=== PATIENT | female | born 1930 | race Caucasian/White ===

== ENCOUNTER → 2017-03-08 | Outpatient (CLI) | payer OTHER, MEDICARE | LOC: FCPNEURO 21:00 | PROVIDERS: ATTEND Internal Medicine Sleep Medicine | DX: G47.33 Obstructive sleep apnea (adult) (pediatric) (principal); G47.36 Sleep related hypoventilation in conditions classified elsewhere ==

== ENCOUNTER → 2017-07-14 | Outpatient (CLI) | payer OTHER, MEDICARE | LOC: BHFA 14:45 | PROVIDERS: ATTEND Internal Medicine Cardiovascular Disease | DX: I35.9 Nonrheumatic aortic valve disorder, unspecified (principal) ==

== ENCOUNTER → 2017-07-20 | Outpatient (CLI) | payer OTHER, MEDICARE | LOC: BHFA 09:00 | PROVIDERS: ATTEND Internal Medicine Cardiovascular Disease | DX: R07.9 Chest pain, unspecified (principal) | CPT/HCPCS: 78452; 93017; A9500; J2785 ==

== ENCOUNTER 2017-08-17 07:34 | Observation (INO) | payer OTHER, MEDICARE ==
[2017-08-17] MEDS ORDERED: ASPIRIN EC 325 MG TAB PO ONE ×2 (07:39→08:07)
[2017-08-17] MEDS ORDERED: NS 1,000 ML IV ONE (07:39)
[2017-08-17] MEDS ORDERED: diphenhydrAMINE 25 MG CAP PO ONE ×2 (07:39→08:06)
[2017-08-17] MEDS ORDERED: FAMOTIDINE 20 MG TAB PO ONE (07:39)
[2017-08-17] MEDS ORDERED: DIAZEPAM 5 MG TAB PO ONE (07:39)
[2017-08-17] MEDS ORDERED: DIAZEPAM 5 MG TAB ONE (08:07)
[2017-08-17] MEDS ORDERED: FAMOTIDINE 20 MG TAB ONE (08:07)
[2017-08-17 08:18] LABS: PLATELET COUNT 228 10^3/uL (150-400)
--- NOTE | 2017-08-17 08:18 | CPEKG ---
Heart Rate: 68 RR Interval: 882 P-R Interval: 156 QRSD Interval: 80 QT Interval: 380 QTC Interval: 405 P [place]: 57 QRS [place]: -2 EKG Severity - ABNORMAL ECG - EKG Impression: SINUS RHYTHM EKG Impression: NONSPECIFIC T ABNORMALITIES, ANT-LAT LEADS Electronically Signed By: Nikhil Harris 18-Aug-2017 11:09:53
[2017-08-17 08:32] LABS: INR 1.01 (0.83-1.16); PROTIME(PATIENT) 13.5 SEC (12.0-15.0)
[2017-08-17] MEDS ORDERED: LIDOCAINE 1% 300 MG/30 ML SDV ONE (08:45)
[2017-08-17] MEDS ORDERED: fentaNYL 100 MCG/2 ML INJ ONE (08:45)
[2017-08-17] MEDS ORDERED: MIDAZOLAM 2 MG/2 ML VIAL ONE ×3 (08:46→10:33)
[2017-08-17] MEDS ORDERED: VERAPAMIL 5 MG/2 ML VIAL ONE (08:46)
[2017-08-17] MEDS ORDERED: IOPAMIDOL (ISOVUE-370) 150 ML BTL IV ONE ×2 (08:46→10:37)
[2017-08-17] MEDS ORDERED: HEPARIN 10,000 UNIT/10 ML MDV (1,000 UNIT/ML) ONE (08:47)
--- NOTE | 2017-08-17 09:31 | PDPROPOC ---
Sedation Plan of Care Sedation Plan of Care: vital signs stable, mental status noted, patient educated of risks, benefits, alternatives, patient can tolerate sedation ASA Classification: ASA 2 Planned drugs: fentanyl, midazolam Mallampati Score: Class 2 Mallampati Reference Image: Patient passed 3-3-2 rule?: Yes
--- NOTE | 2017-08-17 09:31 | PDHPUP ---
History & Physical Update H&P update statement: This history and physical update is based on an assessment of the patient which was completed after admission or registration (within 24 hours), but prior to the surgery/procedure. H&P update: H&P reviewed & patient examined, no change in patient's condition since H&P completed
[2017-08-17] MEDS ORDERED: BIVALIRUDIN 250 MG/5 ML VIAL IV ONE ×3 (10:13→10:49)
[2017-08-17] MEDS ORDERED: NITROGLYCERIN/D5W 50 MG/250 ML BOTTLE IV ONE (10:19)
[2017-08-17] MEDS ORDERED: NITROGLYCERIN 1,500 MCG/15 ML VIAL MISC ONE (10:21)
[2017-08-17] MEDS ORDERED: CLOPIDOGREL BISULFATE 75 MG TAB ONE (10:26)
--- NOTE | 2017-08-17 10:40 | PDDXCAT ---
Diagnostic Cath Note - . Date: 08/17/17 Skin Diver: Dianne Indication: CCC Class III and IV angina on medical treatment - Procedure Access: right groin Procedure: left heart catheterization, coronary angiography, left ventriculogram - Materials Left Heart Cath size: 6F Left Heart Cath materials: standard multipack (JL4, JR4, pigtail) - Findings-Left Heart Catheterization LM: Normal. Bifurcates into the LAD and Lcx LAD: 90% proximal stenosis. GERRI III flow in the rest of the vessel LCX: Diffuse mild disease. OM1 with 40% ostial disease RCA: Dominant. Mild diffuse luminal irregularities EDP: 21 LVEF: 55%. Normal wall motion - Findings-Right Heart Catheterization AO: 157/51 Complications: none Estimated blood loss: <50ml Assessment: Severe LAD prox stenosis. Interventional consult with Dr. Morales Patient Problems: Problems Problem Status Onset Lumbar stenosis Acute Abdominal pain Acute Severe sepsis Acute
--- NOTE | 2017-08-17 11:25 | CPEKG ---
Heart Rate: 63 RR Interval: 952 P-R Interval: 172 QRSD Interval: 82 QT Interval: 420 QTC Interval: 430 P [place]: 55 QRS [place]: -10 T Wave [place]: 65 EKG Severity - ABNORMAL ECG - EKG Impression: SINUS RHYTHM EKG Impression: CONSIDER LEFT VENTRICULAR HYPERTROPHY Electronically Signed By: Nikhil Harris 18-Aug-2017 11:10:10
--- NOTE | 2017-08-17 11:32 | CPIP ---
[f rep st] INVASIVE CARDIAC PROCEDURE DATE OF PROCEDURE: 08/17/2017 INDICATIONS FOR PROCEDURE: Unstable angina, positive stress test. PROCEDURE: 1. Left coronary artery selective angiography. 2. Percutaneous coronary intervention of proximal LAD utilizing Synergy 2.5 x 28 mm drug-eluting genet nt. 3. Right groin closure with 6-Irish Angio-Seal. BRIEF HISTORY: This is an 86-year-old female with history of unstable anginal symptoms. The patient underwent a stress test as an outpatient which was positive for apical ischemia. The patient underw ent a diagnostic cardiac catheterization by Dr. Harper Daen. Please refer to Dr. Dean's note for full delineation of underlying coronary anatomy. Briefly, the patient was found to have high-grade 90% p roximal LAD disease. She did have moderate disease in her marginal 1 artery as well. However, this vessel was only approximately a 0.75 x 1 mm vessel in width compared to the LAD which was at least a 2.5 vessel. Giving these findings, the patient consented for percutaneous intervention. DESCRIPTION OF PROCEDURE: After informed consent and utilizing the same sheath in the right 6-Irish groin, the patient was started on Angiomax bolus and drip. The patient was administered Plavix p.o. The 6-Irish sheath in the right groin was upsized to a 45 cm sheath for extra support g iven the patient's tortuosity. An EBU 3.0 guide was advanced to the left coronary artery. A Choice PT wire was placed down the LAD. with a 2.0 x 12 balloon at 10 atmospheres was performed. We then proceeded with stenting this vessel with a 2.5 x 28 mm Synergy drug-eluting stent. This was deployed successfully at 12 atmospheres. After deployment, angiographic images were obtained, which showed excellent patency of the stented area with no evidence of dissection or perforation. This wa s verified in orthogonal views. The wire was removed. The guide catheter was removed over an 0.035 wire. The right groin was closed with 6-Irish Angio-Seal. The patient tolerated the procedure well with no complications. IMPRESSION: 1. Successful percutaneous coronary intervention of high-grade proximal LAD disease with a Synergy 2 .5 x 28 mm drug-eluting stent. 2. Moderate disease in the marginal 1 artery, mainly in the form of its ostium and its bifurcating b ranches distally. However, this vessel measures approximately 1.0 mm in width. At this point, I luis a ld continue with aggressive medical therapy rather than any type of percutaneous coronary interventio n for this area. /[id number]/MODL
[2017-08-17] MEDS ORDERED: TEMAZEPAM 15 MG CAP PO PRN (12:17)
[2017-08-17] MEDS ORDERED: ATROPINE SULFATE 1 MG/10 ML SYR IVP PRN (12:17)
[2017-08-17] MEDS ORDERED: OXYCODONE/APAP 5/325 TAB PO PRN (12:17)
[2017-08-17] MEDS ORDERED: NITROGLYCERIN 0.4 MG BTL SL PRN ×2 (12:17→12:20)
[2017-08-17] MEDS ORDERED: ONDANSETRON 4 MG/2 ML VIAL IVP PRN (12:17)
[2017-08-17] MEDS ORDERED: LORazepam 2 MG/ML INJ IVP PRN (12:17)
[2017-08-17] MEDS ORDERED: ERGOCALCIFEROL 50,000 I.UNIT CAP PO SCH ×3 (12:30→13:00)
[2017-08-17] MEDS ORDERED: LEVOTHYROXINE 100 MCG TAB PO SCH (12:30)
[2017-08-17] MEDS: HYDROCODONE/APAP 5/325 TAB PO PRN ×2 (17:17→17:46)
[2017-08-17] MEDS: cycloSPORINE 0.05% 30 DROPERETTE/BOX EACHEYE SCH (23:41)
[2017-08-18] MEDS: cycloSPORINE 0.05% 30 DROPERETTE/BOX EACHEYE SCH ×2 (00:17→08:31)
[2017-08-18] MEDS: HYDROCODONE/APAP 5/325 TAB PO PRN (03:24)
[2017-08-18 04:19] LABS: PLATELET COUNT 183 10^3/uL (150-400)
--- NOTE | 2017-08-18 06:39 | PDCARPN ---
Cardiology Progress Note Chief Complaint: CP Assessment/Plan: Assessment: s/p PCI to LAD Plan: 08/18/17 06:38 Doing well No CP d/c home with plavix/ASA Subjective: doing well Reviewed/Discussed With: multidisciplinary team Time Spent With Patient: 25 min Objective: Vital Signs (8 Hrs) Temp Pulse Resp BP Pulse Ox 08/18/17 03:16 36.6 C 64 13 123/57 H 88 L 08/17/17 22:52 36.8 C 69 85 H 121/52 H Intake/Output (24 Hrs) 08/17/17 08/18/17 08/19/17 05:59 05:59 05:59 Intake Total 1200 Output Total 300 Balance 900 Intake: Oral (ml) 600 IV Intake (ml) 600 Output: Urine (ml) 300 Bedpan 300 Other: Weight 68.9 kg Intake Quantity Yes Sufficient Number of Voids Bedpan 1 Toilet 2 Number of Stools Bedpan 1 Result Diagrams: 08/18/17 03:35 08/18/17 03:35 - Physical Exam Constitutional: healthy appearing Eyes: PERRL Ears, Nose, Mouth, Throat: moist mucous membranes Cardiovascular: regular rate and rhythm Peripheral Pulses: 1+: femoral (R), femoral (L) Respiratory: clear to auscultate bilat Gastrointestinal: normoactive bowel sounds Genitourinary: no suprapubic tenderness Skin: no rashes Musculoskeletal: no muscular tenderness Psychiatric: cooperative ICD10 Worksheet Patient Problems: Problems Problem Status Onset Abdominal pain Acute Lumbar stenosis Acute Severe sepsis Acute
--- NOTE | 2017-08-18 06:56 | GDS ---
[f rep st] DISCHARGE SUMMARY DISCHARGE DIAGNOSIS: Coronary artery disease. HOSPITAL COURSE: Briefly, this is an 86-year-old female who has been complaining of stable angina, w ho had a positive outpatient stress test. Patient underwent diagnostic cardiac catheterization by Dr Coty Dean and was found to have a 90% proximal LAD lesion. This was successfully intervened on with a S ynergy 2.5 x 20 mm stent. The patient did have significant marginal 1 disease. However, this vessel measured only 1.0-1.25 mm as its greatest width and decided that it was too small for intervention a nd will be continued to be managed medically. The patient overnight felt great with no chest pain. Did have some slight soreness to the right groin, however, the groin exam this morning is soft. Her hemoglobin is stable. She will be discharged home this morning with her home medications including b carl aspirin and Plavix. She will follow up with us in the office in 1 week's time. /[id number]/MODL
[2017-08-18 07:12] VITALS: BP 138/64
--- NOTE | 2017-08-18 08:47 | CPEKG ---
Heart Rate: 68 RR Interval: 882 P-R Interval: 160 QRSD Interval: 82 QT Interval: 380 QTC Interval: 405 P [place]: 59 QRS [place]: -6 T Wave [place]: 112 EKG Severity - ABNORMAL ECG - EKG Impression: SINUS RHYTHM EKG Impression: ATRIAL PREMATURE COMPLEX EKG Impression: NONSPECIFIC T ABNORMALITIES, ANT-LAT LEADS Electronically Signed By: Nikhil Harris 18-Aug-2017 11:10:21
[2017-08-18] MEDS ORDERED: NON-FORMULARY NEW DRUG (Omeprazole [Omeprazole] 20 MG) PO SCH (09:00)
[2017-08-18] MEDS ORDERED: ATORVASTATIN CALCIUM 10 MG TAB PO SCH (09:00)
[2017-08-18] MEDS ORDERED: CLOPIDOGREL BISULFATE 75 MG TAB PO SCH (09:00)
[2017-08-18] MEDS ORDERED: PANTOPRAZOLE SODIUM 40 MG TAB PO SCH (09:00)
[2017-08-18] MEDS ORDERED: METOPROLOL SUCCINATE XR 25 MG TAB PO SCH (09:00)
[2017-08-18] MEDS ORDERED: ASPIRIN EC 81 MG TAB PO SCH (09:00)
[2017-08-18] MEDS ORDERED: ASPIRIN EC 325 MG TAB PO SCH (09:00)
[2017-08-18] MEDS ORDERED: LEVOTHYROXINE 125 MCG TAB PO SCH (12:20)
== END 2017-08-18 10:55 | disposition home or self-care (01) ==
LOC: FCATH 07:34 → F2W 10:27
PROVIDERS: ADMIT Internal Medicine Cardiovascular Disease; ATTEND Internal Medicine Cardiovascular Disease
PROC: 027034Z Dilation of Coronary Artery, One Artery with Drug-eluting Intraluminal Device, Percutaneous Approach (ICD-10-PCS; principal; 2017-08-17)
PROC: B2151ZZ Fluoroscopy of Left Heart using Low Osmolar Contrast (ICD-10-PCS; 2017-08-17)
PROC: B2111ZZ Fluoroscopy of Multiple Coronary Arteries using Low Osmolar Contrast (ICD-10-PCS; 2017-08-17)
PROC: 4A023N7 Measurement of Cardiac Sampling and Pressure, Left Heart, Percutaneous Approach (ICD-10-PCS; 2017-08-17)
DX: I25.119 Atherosclerotic heart disease of native coronary artery with unspecified angina pectoris (principal); I10 Essential (primary) hypertension; I35.1 Nonrheumatic aortic (valve) insufficiency; E78.5 Hyperlipidemia, unspecified; K21.9 Gastro-esophageal reflux disease without esophagitis; E03.9 Hypothyroidism, unspecified; G47.33 Obstructive sleep apnea (adult) (pediatric); M81.0 Age-related osteoporosis without current pathological fracture
CPT/HCPCS: 93005; 93458; C1725; C1760; C1769; C1874; C1887; C9600; J0583; J1644; J2250; J3010; Q9967

== ENCOUNTER → 2018-09-01 | Outpatient (CLI) | payer OTHER | LOC: FIMAGING 11:27 | PROVIDERS: ATTEND Family Medicine Geriatric Medicine | DX: J98.4 Other disorders of lung (principal); I51.7 Cardiomegaly ==

== ENCOUNTER → 2018-09-13 | Outpatient (CLI) | payer OTHER | LOC: FIMAGING 14:37 | DX: I51.7 Cardiomegaly (principal); M81.0 Age-related osteoporosis without current pathological fracture ==

== ENCOUNTER 2018-09-14 21:01 | Observation (INO) | payer OTHER ==
[2018-09-14 21:50] LABS: PLATELET COUNT 243 10^3/uL (150-400)
[2018-09-14] MEDS ORDERED: ALBUTEROL 3 ML DEYVIAL IH ONE (21:50)
--- NOTE | 2018-09-14 21:52 | EDPHY ---
H & P Stated Complaint: SOB Time Seen by Provider: 09/14/18 21:22 HPI/ROS: CHIEF COMPLAINT: The cough, shortness of breath HISTORY OF PRESENT ILLNESS: 87-year-old female presents with cough and shortness of breath. Onset of cough 8 weeks ago. The cough is persistent and she has spasms of coughing, lasting approximately 15 min. During this spasms of coughing, she cannot talk and cannot catch her breath. Chest x-ray x3 unremarkable. She was seen by her primary care physician yesterday and felt better after an albuterol nebulized treatment. She now feels short of breath at rest. No fever or other URI symptoms. REVIEW OF SYSTEMS: complete 10 point ROS reviewed and is negative except for the noted elements in the HPI - Personal History Current Tetanus/Diphtheria Vaccine: Yes Current Tetanus Diphtheria and Acellular Pertussis (TDAP): Yes - Medical/Surgical History Hx Asthma: No Hx Chronic Respiratory Disease: No Hx Diabetes: No Hx Cardiac Disease: No Hx Renal Disease: No Hx Cirrhosis: No Hx Alcoholism: No Hx HIV/AIDS: No Hx Splenectomy or Spleen Trauma: No Other PMH: HTN, Hypothyroid, Bowel obstruction, hiatal hernia, reflux, insomnia , depression, sarcoma, laminectomy, SUMAN cpap, aortic valve regurg, galbladder removed - Social History Smoking Status: Never smoked Alcohol Use: Sober Drug Use: None - Physical Exam Exam: General Appearance: Alert, nontoxic-appearing Eyes: Pupils equal and round, no conjunctival pallor or injection ENT, Mouth: Mucous membranes moist Neck: Normal inspection Respiratory: Rales at the bases Cardiovascular: Regular rate and rhythm, no murmur Gastrointestinal: Abdomen is soft and nontender Neurological: A&O, nonfocal exam Skin: Warm and dry, no rash Extremities: Left calf greater than right, no tenderness Psychiatric: Mood and affect normal Constitutional: Initial Vital Signs Temperature (C) 36.8 C 09/14/18 21:04 Heart Rate 97 09/14/18 21:04 Respiratory Rate 16 09/14/18 21:04 Blood Pressure 185/86 H 09/14/18 21:04 O2 Sat (%) 88 L 09/14/18 21:04 O2 Delivery Mode Room Air Allergies/Adverse Reactions: No Known Allergies Allergy (Verified 09/14/18 21:07) Home Medications: Medication Instructions Recorded Aspirin/Acetaminophen/Caffeine 1 tab PO DAILY PRN 08/13/17 [Excedrin Extra Strength Caplet] Ergocalciferol [Vitamin D2 (*)] 50,000 unit PO Q30D 08/13/17 Levothyroxine Sodium 100 mcg PO SUTUTHSA 08/13/17 Levothyroxine [Synthroid 125 mcg 125 mcg PO MOWEFR 08/13/17 (*)] Nitroglycerin [Nitrostat 0.4 mg 0.4 mg SL Q5M PRN 08/13/17 (*)] Omeprazole 20 mg PO DAILY 08/13/17 cycloSPORINE 0.05% [Restasis Opht 1 drop EACHEYE BID 08/13/17 Drops(*)] Aspirin EC [Aspirin EC 81 mg (*)] 81 mg PO DAILY tab 08/18/17 Albuterol [Proventil Inhaler HFA 1 - 2 puffs IH Q4H PRN 09/15/18 (*)] Avenova 1 tricia EACHEYE BID 09/15/18 Cetirizine [ZyrTEC 10 mg (*)] 10 mg PO DAILY tab 09/15/18 Codeine Phosphate/Guaifenesin 10 ml PO Q4 PRN 09/15/18 [Guaiatussin AC Liquid] Estrogens,Conjugated [Premarin 1 tricia VG DAILY PRN 09/15/18 Vaginal (*)] Fluticasone Nasal [Flonase Nasal 1 sprays NASAL DAILY 09/15/18 [place]] Rosuvastatin Calcium [Crestor] 5 mg PO DAILY 09/15/18 predniSONE 40 mg PO DAILY 09/15/18 Medical Decision Making - Diagnostics EKG Interpretation: EKG interpreted by me reveals NSR, rate 83, PAC, LVH. Interpretation: abnormal EKG. Imaging Results: CTA chest: unremarkable, no PE Imaging: Discussed imaging studies w/ game producer Radiologist ED Course/Re-evaluation: This patient presents with persistent cough and shortness of breath, now hypoxic at rest with an oxygen saturation of 88% on room air. Peak flow 195, Albuterol nebulizer and Solumedrol 125mg IV given. Stat EKG reveals no evidence of ischemia or dysrhythmia. ddimer slightly elvated, CT pulmonary angiogram is unremarkable. Likely bronchospasm causing sx, pt does not feel comfortable going home. SOB and coughing spasms limiting her ability to do ADL' s. Will admit for further evaluation. Differential Diagnosis: include though not limited to pneumonia, tumor, PE, pulm edema, ACS. - Data Points Laboratory Results: Laboratory Results 09/14/18 21:35 09/14/18 21:35 Medications Given: Discontinued Medications Albuterol (Proventil Neb) 3 ml IH EDNOW ONE Stop: 09/14/18 21:51 Last Admin: 09/14/18 22:00 Dose: 3 ml Aspirin Buffered (Aspirin Ec) 81 mg PO DAILY TYLER Stop: 03/14/19 10:59 Last Admin: 09/15/18 12:03 Dose: 81 mg Benzonatate (Tessalon Pearles) 100 mg PO TID PRN PRN Reason: Cough, Mild Stop: 03/13/19 22:51 Last Admin: 09/15/18 03:15 Dose: 100 mg Cetirizine HCl (Zyrtec) 10 mg PO DAILY TYLER Stop: 03/14/19 08:59 Last Admin: 09/15/18 08:15 Dose: 10 mg Cyclosporine (Restasis) 1 drop EACHEYE BID TYLER Stop: 03/14/19 10:59 Last Admin: 09/15/18 12:05 Dose: 1 drop Enoxaparin Sodium (Lovenox) 40 mg SC DAILY TYLER Stop: 03/14/19 08:59 Last Admin: 09/15/18 08:17 Dose: 40 mg Levothyroxine Sodium (Synthroid) 100 mcg PO SUTUTHSA [facility] Stop: 03/14/19 10:59 Last Admin: 09/15/18 12:03 Dose: 100 mcg Methylprednisolone Sodium Succinate (Solu-Medrol) 125 mg IVP EDNOW ONE Stop: 09/14/18 22:45 Last Admin: 09/14/18 22:49 Dose: 125 mg Pantoprazole Sodium (Protonix) 40 mg PO DAILY [facility] Stop: 03/14/19 11:14 Last Admin: 09/15/18 12:03 Dose: 40 mg Prednisone (Prednisone) 40 mg PO DAILY TYLER Stop: 03/14/19 08:59 Last Admin: 09/15/18 08:15 Dose: 40 mg Point of Care Test Results: Chemistry 09/14/18 21:42 POC Troponin I 0.00 ng/mL ng/mL (0.00-0.08) Departure - Departure Disposition: [facility] Acute Clinical Impression: Bronchospasm, Hypoxia Condition: Fair
[2018-09-14] MEDS ORDERED: IOPAMIDOL (ISOVUE 370) 100 ML BTL IV ONE (22:09)
[2018-09-14] MEDS ORDERED: methylPREDNISolone SOD SUCC 125 MG/2 ML VIAL IVP ONE (22:44)
[2018-09-14] MEDS ORDERED: ACETAMINOPHEN 325 MG TAB PO PRN (22:51)
[2018-09-14] MEDS ORDERED: ALBUTEROL 3 ML DEYVIAL IH PRN (22:51)
[2018-09-14] MEDS ORDERED: ONDANSETRON DISINTEGRATING 4 MG TAB PO PRN (22:51)
[2018-09-14] MEDS ORDERED: ONDANSETRON 4 MG/2 ML VIAL IVP PRN (22:51)
[2018-09-14] MEDS ORDERED: BENZONATATE 100 MG CAP PO PRN (22:52)
[2018-09-14] MEDS ORDERED: GUAIFENESIN/DM 10 ML UDCUP PO PRN (22:52)
--- NOTE | 2018-09-15 00:25 | PDGENHP ---
History and Physical - Chief Complaint Cough - History of Present Illness 87 yo F w/ hx of CAD, GERD, and hypothyroidism presents with cough. The patient tells me she has been suffering from a cough for about 8 weeks. The cough has been progressive in severity. Today she checked her O2 at her living facility and it was mildly low so she came to the ED for evaluation. She denies fevers or chills. She does have mild sputum production. She denies history of asthma. She takes a daily PPI for GERD. 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 She was started on prednisone and cough suppressants by her PCP today. A CXR performed yesterday was unremarkable. A CT performed today only revealed mild cardiomegaly but no heart failure. She has a normal BNP. She is requiring 1-2 L O2 to maintain normal O2 sats. She is being admitted for observation and further evaluation. Case discussed with ED physician Dr. Menjivar; records reviewed and summarized above. History Information - Allergies/Home Medication List Allergies/Adverse Reactions: No Known Allergies Allergy (Verified 09/14/18 21:07) Home Medications: Aspirin/Acetaminophen/Caffeine [Excedrin Extra Strength Caplet] 1 tab PO DAILY PRN 08/13/17 [Last Taken Unknown] Atorvastatin Calcium [Lipitor 10 mg (*)] 5 mg PO DAILY 08/13/17 [Last Taken Unknown] Ergocalciferol [Vitamin D2 (*)] 50,000 unit PO Q30D 08/13/17 [Last Taken Unknown ] Levothyroxine Sodium 100 mcg PO SUTUTHSA 08/13/17 [Last Taken Unknown] Levothyroxine [Synthroid 125 mcg (*)] 125 mcg PO MOWEFR 08/13/17 [Last Taken Unknown] Metoprolol Succinate Xr [Toprol Xl 25 mg (*)] 25 mg PO DAILY 08/13/17 [Last Taken Unknown] Nitroglycerin [Nitrostat 0.4 mg (*)] 0.4 mg SL Q5M PRN 08/13/17 [Last Taken Unknown] Omeprazole 20 mg PO DAILY 08/13/17 [Last Taken Unknown] cycloSPORINE 0.05% [Restasis Opht Drops(*)] 1 drop EACHEYE BID 08/13/17 [Last Taken Unknown] I have personally reviewed and updated: family history, medical history - Past Medical History coronary artery disease, GERD Additional medical history: Hypothyroid - Surgical History Reports: cholecystectomy, coronary stent - Family History Additional family history: Adult daughter in the room healthy - Social History Smoking Status: Never smoked Alcohol Use: Sober Drug Use: None Review of Systems Review of Systems: ROS: 10pt was reviewed & negative except for what was stated in HPI & below Physical Exam Physical Exam: Temp Pulse Resp BP Pulse Ox 36.8 C 84 18 176/94 H 93 09/15/18 00:00 09/15/18 00:00 09/15/18 00:00 09/15/18 00:00 09/15/18 00:00 O2 (L/minute) 2 Constitutional: appears nourished, uncomfortable Eyes: PERRL, EOMI Ears, Nose, Mouth, Throat: moist mucous membranes, no oral mucosal ulcers Cardiovascular: regular rate and rhythym, systolic murmur, edema (Trace, b/l LEs ) Respiratory: no respiratory distress, inspiratory crackles (Bases), No expiratory wheeze Gastrointestinal: normoactive bowel sounds, soft, non-tender abdomen Skin: warm, normal color Musculoskeletal: full muscle strength, no muscle tenderness Neurologic: AAOx3, CN II-XII Intact Psychiatric: interacting appropriately, not anxious Lab Data & Imaging Review 09/14/18 21:35 09/14/18 21:35 WBC 7.99 10^3/uL (3.80-9.50) 09/14/18 21:35 RBC 4.58 10^6/uL (4.18-5.33) 09/14/18 21:35 Hgb 13.6 g/dL (12.6-16.3) 09/14/18 21:35 Hct 41.0 % (38.0-47.0) 09/14/18 21:35 MCV 89.5 fL (81.5-99.8) 09/14/18 21:35 MCH 29.7 pg (27.9-34.1) 09/14/18 21:35 MCHC 33.2 g/dL (32.4-36.7) 09/14/18 21:35 RDW 12.5 % (11.5-15.2) 09/14/18 21:35 Plt Count 243 10^3/uL (150-400) 09/14/18 21:35 MPV 9.6 fL (8.7-11.7) 09/14/18 21:35 Neut % (Auto) 82.3 % (39.3-74.2) H 09/14/18 21:35 Lymph % (Auto) 12.5 % (15.0-45.0) L 09/14/18 21:35 [place] % (Auto) 3.5 % (4.5-13.0) L 09/14/18 21:35 Eos % (Auto) 0.1 % (0.6-7.6) L 09/14/18 21:35 Baso % (Auto) 0.6 % (0.3-1.7) 09/14/18 21:35 Nucleat RBC Rel Count 0.0 % (0.0-0.2) 09/14/18 21:35 Absolute Neuts (auto) 6.57 10^3/uL (1.70-6.50) H 09/14/18 21:35 Absolute Lymphs (auto) 1.00 10^3/uL (1.00-3.00) 09/14/18 21:35 Absolute Monos (auto) 0.28 10^3/uL (0.30-0.80) L 09/14/18 21:35 Absolute Eos (auto) 0.01 10^3/uL (0.03-0.40) L 09/14/18 21:35 Absolute Basos (auto) 0.05 10^3/uL (0.02-0.10) 09/14/18 21:35 Absolute Nucleated RBC 0.00 10^3/uL (0-0.01) 09/14/18 21: Immature Gran % 1.0 % (0.0-1.1) 09/14/18 21: Immature Gran # 0.08 10^3/uL (0.00-0.10) 09/14/18 21:35 D-Dimer 0.97 ug/mLFEU (0.00-0.50) H 09/14/18 21:35 Sodium 134 mEq/L (135-145) L 09/14/18 21:35 Potassium 3.8 mEq/L (3.5-5.2) 09/14/18 21:35 Chloride 99 mEq/L (97-110) 09/14/18 21:35 Carbon Dioxide 26 mEq/l (22-31) 09/14/18 21:35 Anion Gap 9 mEq/L (6-14) 09/14/18 21:35 BUN 15 mg/dL (7-23) 09/14/18 21:35 Creatinine 0.6 mg/dL (0.6-1.0) 09/14/18 21:35 Estimated GFR > 60 09/14/18 21:35 Glucose 118 mg/dL (70-100) H 09/14/18 21:35 Calcium 9.7 mg/dL (8.5-10.4) 09/14/18 21:35 POC Troponin I 0.00 ng/mL (0.00-0.08) 09/14/18 21:42 NT-Pro-B Natriuret Pep 375 pg/mL (0-450) 09/14/18 21:35 Procalcitonin 0.03 ng/mL (0.02-0.10) 09/14/18 21:35 Imaging Review: Imaging Impressions Chest/Thorax CTA 09/14/18 22:04 Impression: 1. No acute pulmonary embolus. 2. Mild cardiomegaly. 3. Moderate hiatal hernia. Findings and recommendations discussed with MARE MENJIVAR at 2237 hour, 2018. Assessment & Plan Assessment: 87 yo F w/ hx of CAD, GERD, and hypothyroidism presents with cough. Plan: 1. Cough - Present for 8 weeks and progressive. It is possible this is due to constant construction dust exposure at her living facility. CXR and CTPE performed over the last 24 hours are negative for pneumonia, PE, or decompensated heart failure. She takes a daily PPI for GERD and denies active symptoms. She denies hx of asthma. She has a normal BNP and procalcitonin on admission as well. - Admit for observation - Will start daily prednisone and Zyrtec to treat suspected reactive airways - Continue daily PPI - Albuterol PRN - Cough suppressants PRN - Could trial furosemide if symptoms not improved by above therapies 2. Hypoxia - Mild, requiring 2 L/min O2 to maintain O2 sats>89%. I suspect atelectasis is at least partly responsible for this. - Continue O2 PRN - Incentive spirometry ordered, encourage ambulation - Albuterol PRN - Consider furosemide if persistent 3. Hx CAD - With stent placement for abnormal stress test on 08/08. TTE at that time demonstrated normal EF and Grade I diastolic dysfunction. Troponin and BNP negative on admission. - Continue home medications pending reconciliation 4. Hx aortic regurgitation - Moderate on 2017 TTE. 5. GERD - Continue PPI 6. Hypothyroid - Continue LTX Diet - Regular Code - Full Ppx - LMWH Dispo - Admit under observation status
[2018-09-15 05:15] LABS: PLATELET COUNT 231 10^3/uL (150-400)
[2018-09-15] MEDS ORDERED: CETIRIZINE 10 MG TAB PO SCH (09:00)
[2018-09-15] MEDS ORDERED: predniSONE 20 MG TAB PO SCH ×2 (09:00→11:00)
[2018-09-15] MEDS ORDERED: ENOXAPARIN 40 MG/0.4 ML SYR SC SCH (09:00)
[2018-09-15] MEDS ORDERED: ESTROGENS,CONJUGATED 30 GM CRTUBE VG PRN (10:58)
[2018-09-15] MEDS ORDERED: ALBUTEROL 60 PUFFS/8 GM MDI IH PRN (10:58)
[2018-09-15] MEDS ORDERED: cycloSPORINE 0.05% 30 DROPERETTE/BOX EACHEYE SCH (11:00)
[2018-09-15] MEDS ORDERED: ASPIRIN EC 81 MG TAB PO SCH (11:00)
[2018-09-15] MEDS ORDERED: LEVOTHYROXINE 100 MCG TAB PO SCH (11:00)
--- NOTE | 2018-09-15 11:06 | HOSPPROG ---
Hospitalist Progress Note Assessment/Plan: 87 yo F w/ hx of CAD, GERD, and hypothyroidism presents with cough. First encounter, chart reviewed. *cough -no pna -CTA show no PE -possibly from GERD *mild hypoxia -oxygen levels stable on room air *hx of CAD -stent in 2018 *GERD -PPI -CT shows a moderate size hiatal hernia *hypothyroid -Synthroid *hx of aortic regurgitation -moderate on TTE in 2018 *2 mm nodule on right lobe -Dr Sandhu to follow *plan: dc after lunch if stable Subjective: Cassie is feeling much better today. Objective: Vital Signs Temp Pulse Resp BP Pulse Ox 36.9 C 69 18 137/63 H 92 09/15/18 07:37 09/15/18 07:37 09/15/18 07:37 09/15/18 07:37 09/15/18 07:37 Microbiology 09/14/18 23:50 Respiratory Panel (PCR) - Final Nasal, Sinus - Swab No Organism Detected By Pcr Laboratory Results 09/15/18 04:30 09/15/18 04:30 09/14/18 09/15/18 09/16/18 05:59 05:59 05:59 Output Total 300 Balance -300 - Physical Exam Constitutional: no apparent distress, appears nourished, not in pain Eyes: PERRL Ears, Nose, Mouth, Throat: hearing normal Cardiovascular: regular rate and rhythym, no murmur, rub, or gallop, edema ( ankle) Respiratory: no respiratory distress, clear to auscultation Gastrointestinal: normoactive bowel sounds Skin: warm Musculoskeletal: full muscle strength Neurologic: AAOx3 Psychiatric: interacting appropriately ICD10 Worksheet Patient Problems: Problems Problem Status Onset Abdominal pain Acute Lumbar stenosis Acute Severe sepsis Acute
[2018-09-15] MEDS ORDERED: PANTOPRAZOLE SODIUM 40 MG TAB PO SCH (11:15)
[2018-09-15 11:59] VITALS: BP 123/64
--- NOTE | 2018-09-15 14:06 | GDS ---
[f rep st] DISCHARGE SUMMARY DISCHARGE DIAGNOSES: 1. Cough. 2. Mild hypoxemia. 3. History of coronary artery disease. 4. Gastroesophageal reflux disease. 5. Hypothyroidism. 6. History of aortic regurgitation. 7. 2 mm nodule on the right lobe. HISTORY OF PRESENT ILLNESS: Briefly, the patient is a very delightful 87-year- old woman who presented to the emergency room with cough. She has been suffering from cough for approximately 8 weeks. They had checked her oxygen levels at her living facility and it was mildly low, so recommendation was for her to be admitted. She had a CT performed that revealed mild cardiomegaly. She does not have a pulmonary emboli. She has no heart failure. Normal BNP. Her oxygen levels are stable this afternoon. 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 She thinks this may be affecting her and making her cough more. She has an appointment Dr. Calixto Sandhu on Wednesday for further evaluation of her cough. HOSPITAL COURSE: 1. Cough. This is much improved. Her primary care provider started her on prednisone. She will be on this for [address]-A shows no PE. She has no pneumonia. This could be from GERD. 2. Mild hypoxia, resolved. 3. History of coronary artery disease. She had a stent placed in 2018. 4. GERD, on a PPI. Her CT shows a moderate-sized hiatal hernia. Recommend that she take her PPI twice daily to see if this helps her cough. 5. Hypothyroidism, on Synthroid. 6. History of aortic regurgitation. This is moderate on her echo in 2018. 7. 2 mm nodule on the right lobe, to have this monitored in the outpatient setting with Dr. Sandhu. DISCHARGE CONDITION: Stable. Blood pressure is 123/64, heart rate is 78, respiratory rate of 18, O2 sats on room air 91%, temperature 36.8 Celsius. MEDICATIONS AT DISCHARGE: Please see the EMR. DISCHARGE INSTRUCTIONS: 1. To continue prednisone as planned. 2. To see Dr. Sandhu on Wednesday as scheduled. 3. Take her omeprazole in the morning and 30 minutes before her evening meal. 4. To have her 2 mm right upper lobe nodule monitor by Dr. Sandhu. Also recommended she try Zyrtec in case this is allergy related. 5. Recommending that she get a clean air purifier in her room to help with the dust from all the building going on at her assisted living. /[id number]/MODL MTDD
[2018-09-15] MEDS ORDERED: AVENOVA EACHEYE SCH (21:00)
[2018-09-16] MEDS ORDERED: ROSUVASTATIN CALCIUM 10 MG TAB PO SCH (09:00)
[2018-09-16] MEDS ORDERED: FLUTICASONE NASAL 120 SPRAYS/16 GM MDI EACHNARE SCH (09:00)
[2018-09-16] MEDS ORDERED: predniSONE 20 MG TAB PO SCH (09:00)
[2018-09-16] MEDS ORDERED: LEVOTHYROXINE 125 MCG TAB PO SCH (10:58)
--- NOTE | 2018-09-16 13:15 | CPEKG ---
Test Reason : dyspnea Blood Pressure : / mmHG Vent. Rate : 083 BPM Atrial Rate : 083 BPM P-R Int : 159 ms QRS Dur : 082 ms QT Int : 361 ms P-R-T Axes : 055 -14 100 degrees QTc Int : 425 ms Sinus rhythm Atrial premature complex LVH with secondary repolarization abnormality Confirmed by Mikal Jeter ([id number] on 09/16/2018 1:14:56 PM Referred By: Dustin Prado Confirmed By:Mikal Jeter
[2018-09-21] MEDS ORDERED: ERGOCALCIFEROL 50,000 I.UNIT CAP PO SCH (09:00)
== END 2018-09-15 14:45 | disposition home or self-care (01) ==
LOC: F3E 23:56
PROVIDERS: ADMIT Student in an Organized Health Care Education/Training Program; ATTEND Internal Medicine
DX: R05 Cough (principal); R09.02 Hypoxemia; I25.10 Atherosclerotic heart disease of native coronary artery without angina pectoris; K21.9 Gastro-esophageal reflux disease without esophagitis; E03.9 Hypothyroidism, unspecified; R91.1 Solitary pulmonary nodule; G47.33 Obstructive sleep apnea (adult) (pediatric); I10 Essential (primary) hypertension; F32.9 Major depressive disorder, single episode, unspecified; Z95.5 Presence of coronary angioplasty implant and graft
CPT/HCPCS: 71275; 93005; G0378; J1650; J2930; J7512; J7613; Q9967; 84484-ER; 96374